=== PATIENT | male | born 1970 | race Caucasian/White ===

== ENCOUNTER 2021-10-27 11:38 | Emergency (ER) | payer MEDICARE, SELFPAY ==
[2021-10-27 11:43] VITALS: BP 127/81; PULSE 83; RESP 20; TEMP 36.4; O2SAT 99; BMI 25.0
--- NOTE | 2021-10-27 12:23 | W.ED.EXTPRO ---
HPI - Extremity Problem General: Chief complaint: Extremity Problem,Nontraumatic Stated complaint: Right hand swollen, had glass in it Time Seen by Provider: 10/27/21 11:59 History of Present Illness: Patient comes in with right hand pain. States he had a piece of glass in his hand from years ago that has been bothering him recently so he cut it open and remove the piece of glass. States that over the last couple of days it has become red, swollen, and painful. States he has redness no streaking up his arm. Associated symptoms: Deny chest pain, fever(s) or rash Review of Systems Const: Denies: fever(s) or body aches Eyes: Denies: change in vision or blurry vision ENMT: Denies: throat pain or odynophagia Card: Denies: chest pain or palpitations Resp: Denies: dyspnea or productive cough GI: Denies: abdominal pain, nausea or vomiting : Denies: flank pain or dysuria Musc: Denies: neck pain or back pain Skin/Breast: Denies: rash or pruritus Neuro: Denies: headache(s) or numbness in extremities Psych: Denies: anxiety or change in appetite Endo: Denies: polyuria or excessive sweating Physical Exam Const: COMMON NORMALS: no acute distress, patient oriented x3, healthy appearing and alert HENMT: COMMON NORMALS: normocephalic and atraumatic HEAD & SCALP: normocephalic and atraumatic Eye: COMMON NORMALS: Equal, round and reactive pupils present and EOMs intact bilaterally PUPIL: Yes Equal, round and reactive pupils present Neck/C-Spine: COMMON NORMALS: full ROM and supple Resp: COMMON NORMALS: normal respiratory effort, No retractions and No use of accessory muscles Cardio: COMMON NORMALS: regular rate and regular rhythm RATE: regular rate RHYTHM: regular rhythm GI: COMMON NORMALS: Normal to inspection, nondistended, normoactive bowel sounds present, Soft to palpation and non-tender PALPATION: Yes Soft to palpation Back/Pelvis: COMMON NORMALS: thoracic and lumbar spine normal to inspection and no thoracic nor lumbar tenderness Extremity: COMMON NORMALS: full ROM OTHER: 8 x 6 cm indurated region with fluctuance on the palmar aspect of his right hand with erythema streaking up his right forearm. Neuro: COMMON NORMALS: patient oriented x3 SENSORIUM/ORIENTATION: Yes alert Psych: COMMON NORMALS: mental status grossly normal and cooperative Skin: COMMON NORMALS: no rashes or lesions noted GENERAL SKIN EXAM: no rashes or lesions noted Procedures Abscess I/D Site: hand Side (if applicable): right Local Anesthetic: lidocaine 1% (1 mL) Amount of anesthesia used (mL): 1 Technique: incised with #11 blade Amount of fluid expressed (mL): 20 Irrigation: Yes Packing used?: plain Course Vital Signs: Vital signs: Vital Signs Temperature 97.5 F L 10/27/21 11:43 Pulse Rate 83 10/27/21 11:43 Respiratory Rate 18 10/27/21 12:38 Blood Pressure 127/81 10/27/21 11:43 Pulse Oximetry 99 10/27/21 11:43 MDM - Extremity (Nontraumatic) Medical Decision Making Patient comes in with right hand pain. States he had a piece of glass in his hand from years ago that has been bothering him recently so he cut it open and remove the piece of glass. States that over the last couple of days it has become red, swollen, and painful. States he has redness no streaking up his arm. On physical exam he has an 8 x 6 cm indurated region with fluctuance on the palmar aspect of his right hand with erythema streaking up his right forearm. He denies fever. Will check labs, treat pain with IV morphine, prepare for incision and drainage. Patient tolerated the incision and drainage without complication. We will start him on Bactrim and Keflex and discharge precautions return for worsening or changing symptoms. Lab Data : 10/27/21 12:30 10/27/21 12:30 Radiology Impressions Hand X-Ray 10/27/21 12:27 IMPRESSION: Marked swelling of the soft tissues with subcutaneous emphysema about the thenar region, highly concerning for infectious process. Laboratory Results WBC 18.1 10^3/uL (4.0-10.0) H 10/27/21 12:30 RBC 4.42 10^6/uL (4.1-5.3) 10/27/21 12:30 Hgb 13.4 g/dL (11.7-16.6) 10/27/21 12:30 Hct 39.9 % (42.0-52.0) L 10/27/21 12:30 MCV 90.3 fl (80-94) 10/27/21 12:30 MCH 30.3 pg (28.0-34.0) 10/27/21 12:30 MCHC 33.6 g/dL (30.0-36.0) 10/27/21 12:30 RDW 13.9 % (12.1-15.1) 10/27/21 12:30 Plt Count 423 10^3/cmm (130-400) H 10/27/21 12:30 MPV 8.7 fL (7.4-10.4) 10/27/21 12:30 Neut % (Auto) 84.8 % 10/27/21 12:30 Lymph % (Auto) 7.2 % 10/27/21 12:30 [place] % (Auto) 6.7 % 10/27/21 12:30 Eos % (Auto) 0.6 % 10/27/21 12:30 Baso % (Auto) 0.4 % 10/27/21 12:30 Neut # (Auto) 15.33 10^3/uL (1.8-7.7) H 10/27/21 12:30 Lymph # (Auto) 1.3 10^3/uL (0.8-4.8) 10/27/21 12:30 [place] # (Auto) 1.2 10^3/uL (0.2-0.9) H 10/27/21 12:30 Eos # (Auto) 0.1 10^3/uL (0.0-0.8) 10/27/21 12:30 Baso # (Auto) 0.1 10^3/uL (0.0-0.1) 10/27/21 12:30 Nucleated RBC % (auto) 0 % 10/27/21 12:30 Nucleated RBCs # 0.0 /100WBC 10/27/21 12:30 Sodium 134 mmol/L (136-145) L 10/27/21 12:30 Potassium 3.6 mmol/L (3.5-5.1) 10/27/21 12:30 Chloride 98 mmol/L (98-107) 10/27/21 12:30 Carbon Dioxide 25 mmol/L (22-29) 10/27/21 12:30 Anion Gap 14.6 (5-19) 10/27/21 12:30 BUN 14 mg/dL (6-20) 10/27/21 12:30 Creatinine 0.9 mg/dL (0.7-1.2) 10/27/21 12:30 GFR Calculation 89.7 mL/min (90-130) L 10/27/21 12:30 Glucose 127 mg/dL (65-115) H 10/27/21 12:30 Calculated Osmolality 280 mOsm/kg (285-295) L 10/27/21 12:30 Lactate 1.5 mmol/L (0.5-2.2) 10/27/21 12:30 Calcium 8.8 mg/dL (8.5-10.5) 10/27/21 12:30 Total Bilirubin 0.6 mg/dL (0.15-1.2) 10/27/21 12:30 AST 15 U/L (0-40) 10/27/21 12:30 ALT 13 U/L (0-41) 10/27/21 12:30 Alkaline Phosphatase 96 IU/L (40-130) 10/27/21 12:30 Total Protein 7.5 g/dL (6.6-8.7) 10/27/21 12:30 Albumin 4.2 g/dL (3.5-5.2) 10/27/21 12:30 Globulin 3.3 g/dL (1.3-4.6) 10/27/21 12:30 Discharge Plan Discharge Patient Disposition: Home Clinical Impression: Cellulitis and abscess of hand Condition: Stable Prescriptions: New hydrocodone-acetaminophen 5-325 mg tablet 1 tab PO Q6H PRN (Reason: pain) Qty: 20 0RF Bactrim DS 800-160 mg tablet 2 tab PO BID 10 Days Qty: 40 0RF cephalexin 500 mg capsule 500 mg PO Q6H 10 Days Qty: 40 0RF Discharge Orders: Discharge ED (Routine); Ordered 10/27/21 Ordered By: Jose Hanks Patient Instructions: Cellulitis, Opioid Safety Coding Level of Care Code 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
--- NOTE | 2021-10-27 12:27 | XRR_ITS ---
PROCEDURE INFORMATION: Exam: XR Right Hand Exam date and time: 10/27/2021 1:08 PM Age: 50 years old Clinical indication: Screening exam; Foreign body; Patient HX: States he had a piece of glass in his hand from years ago that has been bothering him recently so he cut it open and remove the piece of glass. States that over the last couple of days it has become red, swollen, and painful. TECHNIQUE: Imaging protocol: XR Right hand. Views: 1 or 2 views. COMPARISON: MRI Hand w/wo RIGHT [id number] 03/04/2018 2:20 PM FINDINGS: Bones/joints: No fracture or dislocation. No evidence of cortical destruction, focal osteopenia or periosteal reaction to suggest osteomyelitis. Soft tissues: There is marked swelling of the soft tissues and subcutaneous emphysema about the thenar region. No radiopaque foreign body identified. XR/XR hand RT 2V [id number] IMPRESSION: Marked swelling of the soft tissues with subcutaneous emphysema about the thenar region, highly concerning for infectious process.
[2021-10-27 12:38] VITALS: RESP 18
[2021-10-27] MEDS: fentaNYL 50 mcg/mL INJ 2mL IVP (12:38)
[2021-10-27 12:39] LABS: Basophils # 0.1 10^3/uL (0.0-0.1); Basophils % 0.4 %; Eosinophils # 0.1 10^3/uL (0.0-0.8); Eosinophils % 0.6 %; Hematocrit 39.9 % (42.0-52.0); Hemoglobin 13.4 g/dL (11.7-16.6); Lymphocytes # 1.3 10^3/uL (0.8-4.8); Lymphocytes % 7.2 %; Mean Corpuscular HGB Conc 33.6 g/dL (30.0-36.0); Mean Corpuscular Hemoglobin 30.3 pg (28.0-34.0); Mean Corpuscular Volume 90.3 fl (80-94); Mean Platelet Volume 8.7 fL (7.4-10.4); Monocytes # 1.2 10^3/uL (0.2-0.9); Monocytes % 6.7 %; Neutrophils # 15.33 10^3/uL (1.8-7.7); Neutrophils % 84.8 %; Nucleated Red Blood Cells % 0 %; Platelet Count 423 10^3/cmm (130-400); Red Blood Count 4.42 10^6/uL (4.1-5.3); Red Cell Distribution Width 13.9 % (12.1-15.1); White Blood Count 18.1 10^3/uL (4.0-10.0)
[2021-10-27] MEDS: sodium chloride 0.9% 1,000 ML 999 ML IV (12:40)
[2021-10-27] MEDS: ondansetron 2 mg/ML SDV 2 mL 4 MG IVP (12:40)
[2021-10-27 13:00] LABS: Lactate (Lactic Acid level) 1.5 mmol/L (0.5-2.2)
[2021-10-27 13:01] LABS: Alanine Aminotransferase 13 U/L (0-41); Albumin Level 4.2 g/dL (3.5-5.2); Alkaline Phosphatase 96 IU/L (40-130); Anion Gap 14.6 (5-19); Aspartate Amino Transferase 15 U/L (0-40); Blood Urea Nitrogen 14 mg/dL (6-20); Calcium 8.8 mg/dL (8.5-10.5); Carbon Dioxide 25 mmol/L (22-29); Chloride 98 mmol/L (98-107); Globulin 3.3 g/dL (1.3-4.6); Glomerular Filtration Rate 89.7 mL/min (90-130); Glucose 127 mg/dL (65-115); Osmolality Calculated 280 mOsm/kg (285-295); Potassium 3.6 mmol/L (3.5-5.1); Sodium 134 mmol/L (136-145); Total Bilirubin 0.6 mg/dL (0.15-1.2); Total Protein 7.5 g/dL (6.6-8.7)
[2021-10-27 14:33] VITALS: BP 110/82; PULSE 77; RESP 16; O2SAT 99
== END 2021-10-27 14:34 | disposition home or self-care (01) ==
PROVIDERS: Emergency Provider Emergency Medicine
DX: L03.113 Cellulitis of right upper limb (principal)
CPT/HCPCS: 10060; 73120; 80053; 83605; 85025; 96361; 96374; 96375; 99284; J2405; J3010; J7030